=== PATIENT | female | born 1970 | race Two or more races ===

== ENCOUNTER 2020-02-10 14:05 | Emergency (ER) | payer OTHER, SELFPAY ==
[~2020-02-10] VITALS: Ht 172.7 cm; Wt 70.0 kg
[2020-02-10 14:39] VITALS: BP 130/80
== END 2020-02-10 18:10 | disposition home or self-care (01) ==
LOC: ER 14:05
DX: Z03.818 Encounter for observation for suspected exposure to other biological agents ruled out (principal); Z00.00 Encounter for general adult medical examination without abnormal findings
CPT/HCPCS: 87635; 99283; C9803; 99281